=== PATIENT | male | born 1980 | race Two or more races ===

== ENCOUNTER 2020-07-24 03:05 | Emergency (ER) | payer SELFPAY ==
[~2020-07-24] VITALS: Ht 160 cm; Wt 63.6 kg
[2020-07-24] MEDS ORDERED: ERYTHROMYCIN 0.5% OPHTH OINTMENT 1GM TUBE. OU ONE (03:15)
[2020-07-24] MEDS ORDERED: FLUORESCEIN OPHTH TEST STRIP. OU ONE (03:15)
[2020-07-24] MEDS ORDERED: TETRACAINE 0.5% OPHTH SOLUTION 4ML BOTTLE. OU ONE (03:15)
[2020-07-24] MEDS ORDERED: ERYT1OIN6 OP (03:16)
--- NOTE | 2020-07-24 03:16 | PHYS DOC ---
General Adult EDM: Chief Complaint: EYE PROBLEMS HPI: HPI: Patient is a 40 year old male who presents with bilateral eyes swelling and red eyes. Patient says that symptoms started yesterday after he believes he got cleaning solution in his eye. 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 He has not taken any medications and tried some [id number] eyedrops which have not helped this condition. He has no other symptoms. Denies any welding or metal grinding. Does not have any allergies to medication. Denies any alcohol/drug use. He has diffuse conjunctivitis bilaterally in both eyes are tearing. He does not normally wear contacts. He was brought to ED by EMS. Reports no other symptoms or complaints at this time. Review of Systems: Review of Systems: Constitutional: Denies fever or chills Eyes: Reports redness and eye pain HENT: Denies nasal congestion or sore throat Respiratory: Denies cough or shortness of breath Cardiovascular: Denies chest pain or palpitations GI: Denies abdominal pain, nausea, or vomiting : Denies dysuria or hematuria Musculoskeletal: Denies back pain or joint pain Integument: Denies rash or skin lesions Neurologic: Denies headache, focal weakness or sensory changes Complete systems were reviewed and found to be within normal limits, except as documented in this note. Heart Score: C/O Chest Pain: N/A Current Medications: Current Medications Medications (Trade) Dose Ordered Sig/Benji Start Time Stop Time Status Last Admin Dose Admin Erythromycin (Romycin) 0.25 inch 1X ONCE 07/24/20 03:15 07/24/20 03:16 UNV Fluorescein Sodium (Ful-Lynette) 2 strip 1X ONCE 07/24/20 03:15 07/24/20 03:16 UNV Tetracaine HCl (Tetracaine) 2 drop 1X ONCE 07/24/20 03:15 07/24/20 03:16 UNV Physical Exam: PE: Constitutional: Well developed, well nourished, no acute distress, non-toxic appearance. [] HENT: Normocephalic, atraumatic, bilateral external ears normal, oropharynx moist, no oral exudates, nose normal. [] Eyes: PERRLA, EOMI, conjunctiva normal, no discharge. [] Neck: Normal range of motion, no tenderness, supple, no stridor. [] Cardiovascular:Heart rate regular rhythm, no murmur [] Lungs & Thorax: Bilateral breath sounds clear to auscultation [] Abdomen: Bowel sounds normal, soft, no tenderness, no masses, no pulsatile masses. [] Skin: Warm, dry, no erythema, no rash. [] Back: No tenderness, no CVA tenderness. [] Extremities: No tenderness, no cyanosis, no clubbing, ROM intact, no edema. [] Neurologic: Alert and oriented X 3, normal motor function, normal sensory function, no focal deficits noted. [] Psychologic: Affect normal, judgement normal, mood normal. [] EKG: EKG: [] Radiology/Procedures: Radiology/Procedures: [] Course & Med Decision Making: Course & Med Decision Making Pertinent Labs and Imaging studies reviewed. (See chart for details) Patient was given tetracaine drops in both eye--resulting in intermittent symptomatic improvement. Fluorescein dye was given bilaterally--and no uptake was seen under UV light suggesting no abrasion. Erythromycin ointment was applied to both eyes in ED and patient was given prescription for use after discharge. Patient received 1 dose of oral dexamethasone in ED to assist with inflammation. Patient stable for discharge with outpatient follow-up with PCP. Discussed findings and plan with patient, who acknowledges understanding and agreement. Josafat Disclaimer: Josafat Disclaimer: This electronic medical record was generated, in whole or in part, using a voice recognition dictation system. Departure Departure Impression: Primary Impression: Conjunctivitis, allergic Qualified Codes: H10.13 - Acute atopic conjunctivitis, bilateral Disposition: 01 DC HOME SELF CARE/HOMELESS Condition: STABLE Patient Instructions: Allergic Conjunctivitis, [id number] Scripts Erythromycin Base (Erythromycin) 1 Gm Oint...g. 0.5 INCH OP QID for 5 Days, #1 MISC Prov: KIRILL MENDEZ DO 07/24/20 KIRILL MENDEZ DO Jul 24, 2020 03:16
[2020-07-24 03:39] VITALS: BP 144/93
[2020-07-24] MEDS ORDERED: DEXAMETHASONE 4 MG TABLET PO ONE (04:00)
== END 2020-07-24 03:45 | disposition home or self-care (01) ==
LOC: ER 03:05
DX: H10.13 Acute atopic conjunctivitis, bilateral (principal); R60.0 Localized edema
CPT/HCPCS: 99283